=== PATIENT | female | born 1970 | race American Indian/Alaskan Native ===

== ENCOUNTER 2018-12-09 21:01 | Emergency (ER) | payer BC ==
--- NOTE | 2018-12-09 21:47 | Emergency Department Report ---
Blank Doc - Documentation Documentation: This is a 48-year-old female that presents with left knee pain s/p fall. Denies any other injuries or complaints. This initial assessment/diagnostic orders/clinical plan/treatment(s) is/are subject to change based on patient's health status, clinical progression and re-assessment by fellow clinical providers in the ED. Further treatment and workup at subsequent clinical providers discretion. Patient/guardians urged not to elope from the ED as their condition may be serious if not clinically assessed and managed. Initial orders include: 1- Patient sent to [facility] for further evaluation and treatment 2- knee xray
[2018-12-09 21:48] VITALS: BP 140/76
--- NOTE | 2018-12-09 23:26 | XRay Report ---
PROCEDURE: LEFT KNEE 3 VIEWS TECHNIQUE: LEFT knee radiographs, AP, lateral, and sunrise views. CPT 25707 HISTORY: Pain COMPARISONS: None . FINDINGS: Fracture (s) and/or Dislocation(s): None . Alignment: Normal . Joint space(s): Normal . Soft tissues: Normal . Bone mineralization: Normal . Foreign bodies: None . IMPRESSION: Normal Examination . This document is electronically signed by Guilherme Chacon MD., Dec 09 2018 11:24:55 PM ET
[2018-12-10] MEDS ORDERED: IBUPROFEN PO ONE (00:17)
[2018-12-10] MEDS ORDERED: PERCOCET 5/325 PO ONE (00:17)
[2018-12-10] MEDS ORDERED: ZOFRAN ODT PO ONE (00:17)
--- NOTE | 2018-12-10 01:17 | Emergency Department Report ---
ED Fall HPI - General Chief Complaint: Fall Stated Complaint: FELL AT THE STORE/LEFT KNEE PAIN Time Seen by Provider: 12/09/18 21:46 Source: patient Mode of arrival: Wheelchair - History of Present Illness Initial Comments: Patient is a 48-year-old -[place] female with a history of hypertension and presents to the ED with complaint of acute onset of persistent severe left knee pain and swelling after she slipped and fell down on a wet floor at a grocery store 6 hours ago. Patient denies head or neck injury, back pain, hip pain, dizziness, syncope, seizures, numbness and tingling of lower extremities bilaterally or chest pain and shortness of breath. MD Complaint: fall, other (left knee pain, swelling) -: Sudden, hour(s) (6) Fall From: standing, other (slipped and fell down on a concrete floor at a grocery stone) When Fall Occurred: 4-6 hours [employer] Fall Witnessed: yes, by family Place Fall Occurred: other (grocery store) Loss of Consciousness: none Prolonged Down Time?: no Symptoms Prior to Fall: none Location: other (left knee pain) Location - Extremities: Left: Knee (severe pain, swelling) Severity: severe Severity scale (0 -10): 7 Quality: sharp, aching Context: tripped/slipped Associated Symptoms: denies: headache, neck pain, numbness, weakness, chest paint, shortness of breath, abdominal pain, hematuria, unable to walk, lightheaded, vertigo, confusion - Related Data Previous Rx's Medication Instructions Recorded Last Taken Type Acetaminophen/Codeine [Tylenol 1 tab PO Q6H PRN 3 Days #15 tab 12/10/18 Unknown Rx /Codeine # 3 tab] Cyclobenzaprine [Flexeril] 10 mg PO Q8H PRN #10 tablet 12/10/18 Unknown Rx Ibuprofen [Motrin] 800 mg PO Q8HR PRN #20 tablet 12/10/18 Unknown Rx Allergies Allergy/AdvReac Type Severity Reaction Status Date / Time No Known Allergies Allergy Verified 12/09/18 21:12 ED Review of Systems ROS: Stated complaint: FELL AT THE STORE/LEFT KNEE PAIN Other details as noted in HPI Comment: All other systems reviewed and negative Constitutional: no symptoms reported, see HPI. denies: chills, diaphoresis, fever Eyes: as per HPI. denies: eye pain, eye discharge, vision change ENT: as per HPI. denies: ear pain, throat pain, hearing loss, epistaxis Respiratory: no symptoms reported, see HPI. denies: cough, orthopnea, shortness of breath, SOB with exertion, SOB at rest Cardiovascular: as per HPI. denies: chest pain, palpitations, dyspnea on exertion, edema, syncope, paroxysmal nocturnal dyspnea Endocrine: no symptoms reported, see HPI. denies: excessive sweating, flushing, intolerance to cold, intolerance to heat, increased hunger, increased thirst, increased urine, unexplained weight loss Gastrointestinal: denies: as per HPI, abdominal pain, nausea, vomiting, diarrhea, constipation, hematemesis, melena Musculoskeletal: as per HPI, joint swelling (left knee), arthralgia (left knee) Skin: as per HPI. denies: rash, lesions, change in color, change in hair/nails, pruritus Neurological: as per HPI. denies: headache, weakness, numbness, paresthesias, confusion, abnormal gait, vertigo Psychiatric: as per HPI. denies: anxiety, depression, visual hallucinations, homicidal thoughts Hematological/Lymphatic: as per HPI ED Past Medical Hx - Social History Smoking Status: Never Smoker Substance Use Type: None - Medications Home Medications: Home Medications Medication Instructions Recorded Confirmed Last Taken Type Acetaminophen/Codeine [Tylenol 1 tab PO Q6H PRN 3 Days #15 tab 12/10/18 Unknown Rx /Codeine # 3 tab] Cyclobenzaprine [Flexeril] 10 mg PO Q8H PRN #10 tablet 12/10/18 Unknown Rx Ibuprofen [Motrin] 800 mg PO Q8HR PRN #20 tablet 12/10/18 Unknown Rx ED Physical Exam - General Limitations: No Limitations General appearance: alert, in no apparent distress - Head Head exam: Present: atraumatic, normocephalic, normal inspection - Eye Eye exam: Present: normal appearance, PERRL, EOMI. Absent: scleral icterus, conjunctival injection, nystagmus, periorbital swelling Pupils: Present: normal accommodation - ENT ENT exam: Present: normal exam, normal orophraynx, mucous membranes moist, TM's normal bilaterally, normal external ear exam. Absent: mucous membranes dry - Neck Neck exam: Present: normal inspection, full ROM. Absent: tenderness, meningismus, lymphadenopathy, thyromegaly - Respiratory Respiratory exam: Present: normal lung sounds bilaterally. Absent: respiratory distress, wheezes, rales, rhonchi, chest wall tenderness, accessory muscle use, decreased breath sounds, prolonged expiratory - Cardiovascular Cardiovascular Exam: Present: regular rate, normal rhythm, normal heart sounds - GI/Abdominal GI/Abdominal exam: Present: soft, normal bowel sounds. Absent: tenderness, rigid, hyperactive bowel sounds, hypoactive bowel sounds, organomegaly - Rectal Rectal exam: Present: deferred - Extremities Exam Extremities exam: Present: tenderness (left knee), normal capillary refill. Absent: full ROM (due to pain in left knee) - Back Exam Back exam: Present: normal inspection. Absent: full ROM, tenderness, CVA tenderness (R), CVA tenderness (L), muscle spasm, paraspinal tenderness, vertebral tenderness - Neurological Exam Neurological exam: Present: alert, oriented X3, CN II-XII intact, normal gait, reflexes normal - Psychiatric Psychiatric exam: Present: normal affect - Skin Skin exam: Present: warm, dry, intact, normal color, rash ED Course Vital Signs 12/09/18 12/09/18 21:11 21:46 Temperature 98.5 F 98.5 F Pulse Rate 97 H 95 H Respiratory 18 18 Rate Blood Pressure 140/76 140/76 O2 Sat by Pulse 96 96 Oximetry - Reevaluation(s) Reevaluation #1: 12/10/18 01:28 Patient is alert and oriented 3 and is not in any distress. Patient was treated for pain in the ED and left knee x-ray shows no acute fractures or subluxations. Patient's left knee was splinted and Ashwin wrap and patient given crutches. Patient was discharged home on pain medications and advised to follow-up with her primary care physician in 5-7 days for reevaluation or return to the ED immediately if symptoms get worse. ED Medical Decision Making - Radiology Data Radiology results: report reviewed, image reviewed No acute fractures of left knee. - Medical Decision Making Patient is alert and oriented 3 and is not in any distress. Patient was treated for pain in the ED and left knee x-ray shows no acute fractures or subluxations. Patient's left knee was splinted and Ashwin wrap and patient given crutches. Patient was discharged home on pain medications and advised to follow-up with her primary care physician in 5-7 days for reevaluation or return to the ED immediately if symptoms get worse. - Differential Diagnosis left knee contusion, left knee sprain, fractured left knee Critical care attestation.: If time is entered above; I have spent that time in minutes in the direct care of this critically ill patient, excluding procedure time. ED Disposition Clinical Impression: Contusion of left knee, initial encounter Sprain of left knee/leg Qualifiers: Encounter type: initial encounter Qualified Code(s): S83.92XA - Sprain of unspecified site of left knee, initial encounter Muscle strain of left knee Qualifiers: Encounter type: initial encounter Qualified Code(s): S86.912A - Strain of unspecified muscle(s) and tendon(s) at lower leg level, left leg, initial encounter Disposition: TO HOME OR SELFCARE Is pt being admited?: No Does the pt Need Aspirin: No Condition: Stable Instructions: Knee Sprain (ED), Contusion in Adults (ED) Additional Instructions: Take medications with food, drink plenty of fluids and follow up with your primary care physician in 5-7 days for reevaluation. Return to the ED immediately if symptoms get worse. Prescriptions: Cyclobenzaprine [Flexeril] 10 mg PO Q8H PRN #10 tablet PRN Reason: Spasms Ibuprofen [Motrin] 800 mg PO Q8HR PRN #20 tablet PRN Reason: Pain , Severe (7-10) Acetaminophen/Codeine [Tylenol /Codeine # 3 tab] 1 tab PO Q6H PRN 3 Days #15 tab PRN Reason: Pain , Severe (7-10) Referrals: SLADE RAGLAND MD [Primary Care Provider] - 3-5 Days Time of Disposition: 01:33 Print Language: SWISS
== END 2018-12-10 01:59 | disposition home or self-care (01) ==
LOC: ED 21:01
DX: S83.92XA Sprain of unspecified site of left knee, initial encounter (principal); S80.02XA Contusion of left knee, initial encounter; S86.912A Strain of unspecified muscle(s) and tendon(s) at lower leg level, left leg, initial encounter; W01.0XXA Fall on same level from slipping, tripping and stumbling without subsequent striking against object, initial encounter; Y93.89 Activity, other specified; Y92.512 Supermarket, store or market as the place of occurrence of the external cause; Y99.8 Other external cause status
CPT/HCPCS: Q0162